=== PATIENT | female | born 1995 | race Hispanic/Latino ===

== ENCOUNTER 2019-09-16 12:05 | Inpatient (IN) | payer OTHER ==
[~2019-09-16] VITALS: Ht 162.6 cm; Wt 70.3 kg
[2019-09-16 13:33] LABS: HEMATOCRIT 35.9 % (36-48); MEAN CORPUSCULAR HEMOGLOBIN 30.6 pg (27.0-33.0); MEAN CORPUSCULAR HGB CONC 34.4 g/dL (32.0-36.0); MEAN CORPUSCULAR VOLUME 88.9 fL (79-99); PLATELET COUNT (AUTO) 152 K/uL (130-400); RED BLOOD CELL COUNT(AUTO) 4.03 MIL/uL (4.00-5.50); RED CELL DISTRIBUTION WIDTH 12.8 % (11.0-15.5); WHITE BLOOD COUNT (AUTO) 12.3 K/uL (4.8-10.8)
[2019-09-16] MEDS ORDERED: LACTATED RINGERS 1000ML 1,000 ML IV PRN (13:40)
[2019-09-16] MEDS ORDERED: EPHEDRINE SULFATE 50 MG/ML AMPULE IVP PRN (13:45)
[2019-09-16] MEDS ORDERED: NALOXONE HCL 0.4 MG/1 ML ML IV PRN (13:45)
[2019-09-16] MEDS ORDERED: BUTORPHANOL TARTRATE 2 MG/ML IVP PRN (13:45)
[2019-09-16] MEDS ORDERED: LACTATED RINGERS 500 ML 500 ML IV PRN (13:45)
[2019-09-16] MEDS ORDERED: MISOPROSTOL 25 MCG TABLET VG SCH (20:00)
[2019-09-16] MEDS ORDERED: LIDOCAINE HCL 1% 20 ML VIAL ONE (20:03)
[2019-09-16] MEDS ORDERED: OXYTOCIN-LR 20 UNITS/1000 ML 1,000 ML IV ONE (20:04)
[2019-09-16] MEDS ORDERED: CEFAZOLIN SODIUM 1 GM VIAL ONE (22:17)
[2019-09-16] MEDS ORDERED: DURAMORPH PF1 MG/ML 10ML AMP IV ONE (22:32)
[2019-09-16] MEDS ORDERED: PHENYLEPHRINE HCL 10 MG/ML 1ML VIAL IV ONE (22:32)
[2019-09-16] MEDS ORDERED: FENTANYL CITRATE PF 50 MCG/1 ML 2ML VIAL ONE (22:33)
[2019-09-16] MEDS ORDERED: CEFAZOLIN SODIUM 1 GM VIAL IVP ONE (22:46)
[2019-09-16] MEDS ORDERED: OXYTOCIN 10 USP UNITS/ML ONE ×2 (22:48→23:04)
[2019-09-16] MEDS ORDERED: ONDANSETRON HCL 4 MG/2 ML VIAL ONE (23:02)
[2019-09-16] MEDS ORDERED: OXYTOCIN-LR 20 UNITS/1000 ML 1,000 ML IV PRN (23:30)
[2019-09-16] MEDS ORDERED: MEPERIDINE-PF 75 MG/ML SYG IM PRN (23:30)
[2019-09-16] MEDS ORDERED: SODIUM CHLORIDE 0.9% 10 ML VIAL IVP PRN (23:30)
[2019-09-16] MEDS ORDERED: DEXTROSE 5 %-0.45 % NACL 1,000 ML IV PRN (23:30)
[2019-09-16] MEDS ORDERED: PROMETHAZINE HCL 25 MG/ML 1ML AMPULE IM PRN (23:30)
[2019-09-17] VITALS (7 sets, daily range): BP systolic 110–125; BP diastolic 67–81
--- NOTE | 2019-09-17 01:20 | NUR ---
Patient received from L&D: Patient came in via bed accompanied by Michelle Cunningham RN and family with IV of LR with 20 units Pitocin infusing at 150 ml/hour. Patient and Family oriented to room, call light given. Plan of care discussed with patient verbalizes understanding. Patient felt itchy on her face cold wet towel given. Patient refused Benadryl claimed, " I don't want to feel sleepy. "
[2019-09-17] MEDS ORDERED: IRON-23 PO (01:56)
[2019-09-17] MEDS ORDERED: PREN-202 PO (01:56)
[2019-09-17] MEDS ORDERED: OXYTOCIN 10 USP UNITS/ML 20 UNIT in LACTATED RINGERS 1000ML 1,000 ML IV SCH (05:00)
[2019-09-17 07:00] LABS: MEAN CORPUSCULAR HEMOGLOBIN 29.8 pg (27.0-33.0); MEAN CORPUSCULAR HGB CONC 33.7 g/dL (32.0-36.0); MEAN CORPUSCULAR VOLUME 88.3 fL (79-99); PLATELET COUNT (AUTO) 153 K/uL (130-400); RED BLOOD CELL COUNT(AUTO) 3.96 MIL/uL (4.00-5.50); RED CELL DISTRIBUTION WIDTH 12.5 % (11.0-15.5); WHITE BLOOD COUNT (AUTO) 20.2 K/uL (4.8-10.8)
[2019-09-17 07:14] LABS: HEPATITIS Bs ANTIGEN SCREEN P Negative (Negative)
[2019-09-17] MEDS ORDERED: BISACODYL 10 MG SUPP.RECT RC PRN (07:30)
[2019-09-17] MEDS ORDERED: ACETAMINOPHEN-CODEINE 300/30MG TAB PO PRN (07:30)
[2019-09-17] MEDS ORDERED: ACETAMINOPHEN EXTRA STRENGTH 500 MG TABLET PO PRN (07:30)
[2019-09-17] MEDS ORDERED: LANOLIN 30GM OINTMENT TP PRN (07:30)
[2019-09-17] MEDS ORDERED: HYDROCODONE/ACETAMINOPHEN 5/325 MG TAB PO PRN (07:30)
[2019-09-17] MEDS ORDERED: DIPHENHYDRAMINE HCL 25 MG CAPSULE PO PRN (07:30)
[2019-09-17] MEDS ORDERED: CEFAZOLIN SODIUM 1 GM VIAL IVP PRN (07:45)
[2019-09-17] MEDS ORDERED: LACTATED RINGERS 1000ML 1,000 ML IV SCH (07:45)
[2019-09-17] MEDS ORDERED: CITRIC ACID/SODIUM CITRATE 30 ML UDCUP PO PRN (07:45)
[2019-09-17] MEDS: SIMETHICONE 80 MG TAB.CHEW PO PRN ×2 (08:54→20:27)
[2019-09-17] MEDS: DOCUSATE SODIUM 100 MG CAP PO SCH ×2 (08:54→20:27)
[2019-09-17] MEDS: LIDOCAINE 5% TOPICAL PATCH TP SCH (08:55)
--- NOTE | 2019-09-17 08:55 | NUR ---
ALBERTS D/C ALBERTS CATHETER DISCONTINUED. DRESSINGS REMOVED. INCISION WITH MINIMAL DRAINAGE. LIDOCAINE PATCH PLACED WITH NON-ADHERENT PAD. ABDOMINAL BINDER PLACED. PATIENT INSTRUCTED ON DAY 1 POST CESEREAN SECTION PLAN. PATIENT INSTRUCTED TO CALL FOR ASSISTANCE WHEN NEEDING TO VOID.
--- NOTE | 2019-09-17 09:00 | NUR ---
PHYSICIAN ROUNDING DR RUCKER AT BEDSIDE TO ASSESS PATIENT. PATIENT INCISION ASSESSED. PLAN OF CARE DISCUSSED WITH PATIENT. NEW ORDERS RECEIVED AND WILL BE CARRIED OUT. Addendum: 09/17/19 at 1137 by KENN BREEN RN RN DR. RUCKER INFORMED OF PATIENT MEDICATION ALLERGIES. NEW ORDERS RECEIVED FOR IBUPROFEN 800MG Q8H
--- NOTE | 2019-09-17 10:25 | NUR ---
PATIENT ACTIVITY PATIENT AMBULATING IN HALLWAY. PATIENT TOLERATED WELL. AMBULATED FOR 15 MINUTES. PATIENT STATED SHE FELT NO DIZZINESS OR PAIN.
[2019-09-17] MEDS: IBUPROFEN 800 MG TAB PO SCH ×2 (13:49→20:29)
--- NOTE | 2019-09-17 20:00 | NUR ---
PT. AMBULATED IN BUSBY FOR 40 MINS, WELL ABDIRAHMAN.
[2019-09-18 04:08] VITALS: BP 119/79
[2019-09-18] MEDS: IBUPROFEN 800 MG TAB PO SCH ×2 (05:07→12:37)
--- NOTE | 2019-09-18 07:40 | NUR ---
PATIENT ACTIVITY PATIENT COMPLAINED OF ABDOMINAL DISTENTION. PATIENT REQUESTED SUPPOSITORY. SUPPOSITORY INSERTED TO HELP RELIEVE PATIENT DISCOMFORT.
[2019-09-18 08:10] VITALS: BP 117/64
[2019-09-18] MEDS: DOCUSATE SODIUM 100 MG CAP PO SCH (08:55)
[2019-09-18] MEDS: LIDOCAINE 5% TOPICAL PATCH TP SCH (08:55)
[2019-09-18] MEDS: SIMETHICONE 80 MG TAB.CHEW PO PRN (08:55)
[2019-09-18 11:14] VITALS: BP 124/81
--- NOTE | 2019-09-18 12:00 | NUR ---
DISCHARGE TEACHING PATIENT GIVEN DISCHARGE TEACHING AND HOME CARE INSTRUCTIONS. PATIENT INSTRUCTED ON PRESCRIPTIONS AND FOLLOW UP VISIT WITH [facility]. PATIENT VERBALIZED UNDERSTANDING AND STATED NO FURTHER QUESTIONS AT THIS TIME. Addendum: 09/18/19 at 1211 by KENN BREEN RN RN FOLLOW UP WITH DR. LISSETH RUCKER
--- NOTE | 2019-09-18 12:50 | NUR ---
PATIENT DISCHARGE PATIENT TAKEN TO [facility]OM[facility] LOB[facility] VIA WHEELCHAIR WITH BABY AND ESCORTED BY SPOUSE. PATIENT TOLERATED WELL AND STATED SHE DID NOT HAVE ANY PAIN. BABY WAS PLACED INTO CAR SEAT AND PATIENT WAS ASSISTED INTO PRIVATE VEHICLE.
== END 2019-09-18 12:50 | disposition home or self-care (01) | DRG 788 ==
LOC: OBSVTOIN 12:05 → LDH 12:05 → WSH 09-17 01:15
PROVIDERS: ADMIT Obstetrics & Gynecology; ATTEND Obstetrics & Gynecology
PROC: 10D00Z1 Extraction of Products of Conception, Low, Open Approach (ICD-10-PCS; principal; 2019-09-16 22:48)
DX: O77.9 Labor and delivery complicated by fetal stress, unspecified (principal); Z37.0 Single live birth; Z3A.00 Weeks of gestation of pregnancy not specified
CPT/HCPCS: 36415; 59510; 82120; 85027; 86592; 86850; 86900; 86901; 87340; A4344; G0378; J0595; J0690; J2274; J2370; J2405; J2590; J3010; J7120